=== PATIENT | female | born 1955 | race Caucasian/White ===

== ENCOUNTER → 2017-04-07 | Outpatient (CLI) | payer MEDICARE, OTHER | END | disposition home or self-care (01) | LOC: SURG 10:20 | PROVIDERS: ATTEND Anesthesiology Pain Medicine | DX: M25.562 Pain in left knee (principal); G90.522 Complex regional pain syndrome I of left lower limb; J44.9 Chronic obstructive pulmonary disease, unspecified; Z87.891 Personal history of nicotine dependence | CPT/HCPCS: 99204 ==